=== PATIENT | female | born 1980 | race Caucasian/White ===

== ENCOUNTER → 2018-08-02 | Outpatient (CLI) | payer OTHER ==
--- NOTE | ~2018-08-02 | 2DMMODE ---
[facility] [address] [place] [address] 2 D/M-MODE ECHOCARDIOGRAM Name: CHRISTOPHER DUQUEAUSTINCUCO Room #: REG [facility]#: [id number] Admission: 08/02/18 Attend Phys: Zhang Prescott Discharge: Date of : 78 Date of Service: 08/02/18 1457 Report #: [id number] THIS REPORT FOR: //name// APPROVED REPORT Study performed: 08/02/2018 13:08:19 EXAM: Comprehensive 2D, Doppler, and color-flow Echocardiogram Patient Location: Out-Patient Room #: Echo 2 Status: routine BSA: 1.64 HR: 63 bpm BP: 96/64 mmHg Rhythm: NSR Other Information Study Quality: Good Indications Palpitations 2D Dimensions RVDd: 28.96 mm IVSd: 6.56 (7-11mm) LVOT Diam: 22.07 (18-24mm) LVDd: 49.02 mm PWd: 7.88 (7-11mm) Ascending Ao: 32.68 (22-36mm) LVDs: 34.87 (25-40mm) Aortic Root: 24.14 mm IVC: 20.00 mm Volumes Left Atrial Volume (Systole) Single Plane 4CH: 23.57 mL Single Plane 2CH: 48.82 mL LA ESV Index: 22.00 mL/m2 Aortic Valve AoV Peak Ilya.: 1.71 m/s AO Peak Gr.: 11.65 mmHg LVOT Max P.89 mmHg LVOT Max V: 1.65 m/s DICK Vmax: 3.70 cm2 Mitral Valve E/A Ratio: 2.0 MV Decel. Time: 184.75 ms MV E Max Ilya.: 1.00 m/s [facility] [address] [place] [address] 2 D/M-MODE ECHOCARDIOGRAM Name: DUQUEJACINTA DIGGS Room #: [facility]#: [id number] Admission: 08/02/18 Attend Phys: Zhang Prescott Discharge: Date of : 78 Date of Service: 08/02/18 1457 Report #: [id number] MV A Ilya.: 0.49 m/s MV PHT: 53.58 ms IVRT: 69.20 ms Pulmonary Valve PV Peak Ilya.: 1.36 m/s PV Peak Gr.: 7.73 mmHg Pulmonary Vein P Vein S: 0.82 m/s P Vein A: 0.54 m/s P Vein D: 0.66 m/s P Vein A Dur.: 170.7 msec P Vein S/D Ratio: 1.24 Left Ventricle The left ventricle is normal size. There is normal LV segmental wall motion. There is normal left ventricular wall thickness. The left ventricular systolic function is normal. LVEF is 55-60%. The left ventricular diastolic function is normal. Right Ventricle The right ventricle is normal size. The right ventricular systolic function is normal. Atria The left atrium size is normal. Right atrium is at the upper limits of normal. Aortic Valve The aortic valve is normal in structure. No aortic regurgitation is present. There is no aortic valvular stenosis. Mitral Valve The mitral valve is normal in structure. There is no mitral valve regurgitation noted. No evidence of mitral valve stenosis. Tricuspid Valve The tricuspid valve is normal in structure. There is no tricuspid valve regurgitation noted. Unable to assess PA pressure. Pulmonic Valve The pulmonary valve is normal in structure. Trace pulmonic regurgitation. Great Vessels The aortic root is normal in size. The ascending aorta is normal in size. IVC is normal in size and collapses >50% with inspiration. [facility] [address] [place] [address] 2 D/M-MODE ECHOCARDIOGRAM Name: CHRISTOPHER DUQUEAUSTINCUCO Room #: REG CL [facility]#: [id number] Admission: 08/02/18 Attend Phys: Zhang Prescott Discharge: Date of : 78 Date of Service: 08/02/18 1457 Report #: [id number] Pericardium There is no pericardial effusion. <Conclusion> The left ventricle is normal size. There is normal left ventricular wall thickness. The left ventricular systolic function is normal. The left ventricular diastolic function is normal. The right ventricle is normal size. The left atrium size is normal. The aortic valve is normal in structure. The mitral valve is normal in structure. There is no tricuspid valve regurgitation noted. <ELECTRONICALLY SIGNED> By: Avni Bailon MD 08/02/18 1457 [id number] [id number] Avni Bailon MD /INF
== END ==
LOC: CV 07:09
DX: R00.2 Palpitations (principal)